=== PATIENT | female | born 1980 | race American Indian/Alaskan Native ===

== ENCOUNTER 2020-01-27 14:54 | Emergency (ER) | payer SELFPAY ==
[2020-01-27] MEDS ORDERED: cloNIDine 0.2 MG TAB PO ONE (15:22)
--- NOTE | 2020-01-27 15:23 | Emergency Department Report ---
ED General Adult HPI - General Chief complaint: High BP Stated complaint: BP HIGH Time Seen by Provider: 01/27/20 15:22 Source: patient Mode of arrival: Ambulatory Limitations: No Limitations - History of Present Illness Initial comments: 39 YO AA FEMALE COMES TO ER TODAY P SHE WAS TOLD YESTERDAY, AT CLINIC, THAT HER BP WAS ELEVATED. SHE HAS NO CP. NO SOB. NO HEADACHE. NO HX OF THE SAME. POS FAM HX. SHE HAS NEVER BEEN TOLD SHE HAD HTN IN THE PAST -: Gradual Improves with: none Worsens with: none Associated Symptoms: denies other symptoms - Related Data Previous Rx's Medication Instructions Recorded Last Taken Type hydroCHLOROthiazide [HCTZ] 25 mg PO QDAY #30 tablet 01/27/20 Unknown Rx Allergies Allergy/AdvReac Type Severity Reaction Status Date / Time No Known Allergies Allergy Unverified 01/27/20 14:56 ED Review of Systems ROS: Stated complaint: BP HIGH Other details as noted in HPI Comment: All other systems reviewed and negative ED Past Medical Hx - Past Medical History Previous Medical History?: No - Surgical History Past Surgical History?: No - Family History Family history: other (MOM A/W WITH HTN; DAD A/W) - Social History Smoking Status: Current Every Day Smoker Substance Use Type: Alcohol, Marijuana - Medications Home Medications: Home Medications Medication Instructions Recorded Confirmed Last Taken Type hydroCHLOROthiazide [HCTZ] 25 mg PO QDAY #30 tablet 01/27/20 Unknown Rx ED Physical Exam - General Limitations: No Limitations General appearance: alert, in no apparent distress - Head Head exam: Present: atraumatic, normocephalic - Eye Eye exam: Present: normal appearance - ENT ENT exam: Present: mucous membranes moist - Neck Neck exam: Present: normal inspection - Respiratory Respiratory exam: Present: normal lung sounds bilaterally. Absent: respiratory distress - Cardiovascular Cardiovascular Exam: Present: regular rate, normal rhythm. Absent: systolic murmur, diastolic murmur, rubs, gallop - GI/Abdominal GI/Abdominal exam: Present: soft, normal bowel sounds - Extremities Exam Extremities exam: Present: normal inspection - Back Exam Back exam: Present: normal inspection - Neurological Exam Neurological exam: Present: alert, oriented X3 - Psychiatric Psychiatric exam: Present: normal affect, normal mood - Skin Skin exam: Present: warm, dry, intact, normal color. Absent: rash ED Course Vital Signs 01/27/20 01/27/20 01/27/20 15:00 15:03 15:38 Temperature 98.2 F Pulse Rate 88 79 Respiratory 18 Rate Blood Pressure 175/121 190/123 O2 Sat by Pulse 100 Oximetry ED Medical Decision Making - Lab Data Result diagrams: 01/27/20 15:45 01/27/20 15:45 - Medical Decision Making Labs 01/27/20 01/27/20 15:45 15:45 WBC 6.4 RBC 4.10 Hgb 11.4 Hct 34.5 MCV 84 MCH 28 MCHC 33 RDW 16.8 H Plt Count 260 Sodium 135 L Potassium 4.0 Chloride 100.7 Carbon Dioxide 21 L Anion Gap 17 BUN 6 L Creatinine 0.7 Estimated GFR > 60 BUN/Creatinine Ratio 9 Glucose 77 Calcium 9.6 Total Bilirubin 0.40 AST 20 ALT 8 Alkaline Phosphatase 64 Total Protein 8.4 H Albumin 4.3 Albumin/Globulin Ratio 1.0 Vital Signs 01/27/20 01/27/20 01/27/20 15:00 15:03 15:38 Temperature 98.2 F Pulse Rate 88 79 Respiratory 18 Rate Blood Pressure 175/121 190/123 O2 Sat by Pulse 100 Oximetry ASYMPTOMATIC HTN NEW ONSET ON NO MEDS NO CP NO SOB NO HEADACHE NEURO INTACT AMBULATORY TAKING PO CLONIDINE GIVEN IN ER AND STARTED ON HCTZ I'VE EDUCATED PT THAT GIVEN HER BP SHE IS HIGH RISK FOR SECONDARY ISSUES SUCH AMI, CVA AND KIDNEY DISEASE. SHES BEEN GIVEN REFERRAL TO PCP AND VERBALIZES UNDERSTANDING OF THE NEED TO FOLLOW UP. - Differential Diagnosis HTN RO END ORGAN DYSFUNCTION Critical care attestation.: If time is entered above; I have spent that time in minutes in the direct care of this critically ill patient, excluding procedure time. ED Disposition Clinical Impression: Elevated blood pressure reading Disposition: -01 TO HOME OR SELFCARE Is pt being admited?: No Does the pt Need Aspirin: No Condition: Stable Instructions: DASH Eating Plan (ED), Low Sodium Diet (ED), Hypertension (ED) Additional Instructions: FOLLOW DIET GIVEN TODAY- SEE ATTACHED MED ORDERED TODAY - DAILY- STARTING TODAY HYDRATE WELL WITH WATER AVOID TOBACCO AND ALCOHOL; WELL DRUGS FOLLOW UP WITH PCP NAVEED REFERRAL BELOW ACTIVITY TOLERATED Prescriptions: hydroCHLOROthiazide [HCTZ] 25 mg PO QDAY #30 tablet Referrals: SHALINI ARNDT MD [Staff Physician] - 3-5 Days Time of Disposition: 16:13
[2020-01-27 16:05] LABS: Hemoglobin 11.4 gm/dl (10.1-14.3)
[2020-01-27 16:24] LABS: Hematocrit 34.5 % (30.3-42.9); Mean Corpuscular HGB Conc 33 % (30-34); Mean Corpuscular Volume 84 fl (79-97); Platelet Count 260 K/mm3 (140-440); Red Cell Distribution Width 16.8 % (13.2-15.2)
[2020-01-27 16:26] LABS: Alanine Aminotransferase 8 units/L (7-56); Albumin 4.3 g/dL (3.9-5); BUN/Creatinine Ratio 9; Blood Urea Nitrogen 6 mg/dL (7-17); Calcium 9.6 mg/dL (8.4-10.2); Hemolysis Index 9
[2020-01-27] MEDS ORDERED: hydroCHLOROthiazide 25 MG TAB PO ONE (16:29)
[2020-01-27 17:25] VITALS: BP 136/99
== END 2020-01-27 17:00 | disposition home or self-care (01) ==
LOC: ED 14:54
DX: R03.0 Elevated blood-pressure reading, without diagnosis of hypertension (principal); F17.200 Nicotine dependence, unspecified, uncomplicated; F12.10 Cannabis abuse, uncomplicated; Z79.899 Other long term (current) drug therapy
CPT/HCPCS: 36415; 80053; 85027; 99283